=== PATIENT | male | born 1960 | race Caucasian/White ===

== ENCOUNTER 2019-12-04 15:32 | Inpatient (IN) ==
[2019-12-04] MEDS ORDERED: CARDIZEM IV ONE (15:58)
--- NOTE | 2019-12-04 15:58 | EKG Report ---
Test Performed on : 12/04/2019 3:45:11 PM Test Reason : sob Blood Pressure : / mmHG Vent. Rate : 149 BPM Atrial Rate : 298 BPM P-R Int : 000 ms QRS Dur : 088 ms QT Int : 302 ms P-R-T Axes : 260 032 -19 degrees QTc Int : 475 ms Atrial flutter. with 2:[address]. [address] and T wave abnormality Abnormal ECG When compared with ECG of 18-JUL-2015 19:26, Atrial flutter. has replaced Sinus rhythm. Vent. rate has increased BY [address] now depressed in Inferior leads ST now depressed in Lateral leads Nonspecific T wave abnormality, worse in Inferior leads Nonspecific T wave abnormality now evident in Lateral leads Unconfirmed Result
[2019-12-04 16:11] LABS: BASO# 0.02 X1000 (0.0-0.2); BASO% 0.2 % (0.0-0.8); EOS# 0.05 X1000 (0.0-0.7); EOS% 0.6 % (0.0-10.0); HEMATOCRIT 38.2 % (42.0-52.0); HEMOGLOBIN 12.4 g/dL (14.0-18.0); IMM GRAN# 0.02 X1000 (0.0-0.04); IMM GRAN% 0.2 % (0.0-0.5); LYMPH# 2.21 X1000 (1.2-3.4); LYMPH% 26.3 % (20.5-51.1); MCH 31.5 PG (27-31); MCHC 32.5 g/dL (33-37); MONO# 0.75 X1000 (0.11-0.59); MONO% 8.9 % (1.7-9.3); MPV 10.5 FL (7.4-10.4); NEUT# 5.34 X1000 (1.4-6.5); NEUT% 63.8 % (42.2-75.2); PLT 194 X1000 (130-400); RBC 3.94 XMIL (4.7-6.1); RDW 13.9 % (11.5-14.5); WBC 8.39 X1000 (4.8-10.8)
[2019-12-04] MEDS: CARDIZEM 100 MG/NS 100 MG/100 ML IVPB IV SCH ×2 (16:16→22:52)
--- NOTE | 2019-12-04 16:17 | Diag Imaging Result Doc PS360 ---
CHEST-1 VIEW - 12/04/2019 INDICATION: sob COMPARISON: None FINDINGS: There is mild cardiomegaly. Pulmonary vascularity is top normal. No infiltrates or edema. No substantial pleural effusion. IMPRESSION: Mild cardiomegaly. Electronically signed by Mickey Mclaughlin 12/04/2019 4:15 PM
[2019-12-04 16:54] LABS: AGAP 13; ALB/GLOB RATIO 1.1; ALBUMIN 4.1 g/dL (3.5-5.0); ALKALINE PHOSPHATASE 65 U/L (32-122); BUN 9 mg/dL (8-22); CHLORIDE 102 mmol/L (98-107); COSMO 283; ESTIMATED GFR > 60; GLUCOSE 183 mg/dL (70-104); GOT 25 U/L (10-34); GPT 9 U/L (10-44); POTASSIUM 4.3 mmol/L (3.5-5.1); SODIUM 140 mmol/L (136-145); TCO2 25 mmol/L (25-35); TOTAL BILIRUBIN 0.62 mg/dL (0.20-1.00); TOTAL PROTEIN 7.7 g/dL (6.3-8.3)
[2019-12-04 17:03] LABS: FREE T4 1.1 ng/dL (0.93-1.70)
[2019-12-04 17:11] LABS: TSH 5.2 uIUmL (0.27-4.20)
--- NOTE | 2019-12-04 17:17 | PROVIDER DOCUMENTATION ---
This chart was entered by Graciela Childers Scribe, acting as scribe for Sung Dumas MD. HPI-Cardiac General - General Chief Complaint: Palpitations Stated Complaint: AFIB Time Seen by Provider: 12/04/19 15:45 Source: patient Allergies/Adverse Reactions: Patient Allergies Allergy/AdvReac Type Severity Reaction Status Date / Time No Known Allergies Allergy Verified 12/04/19 15:55 Home Medications: Home Medication List Medication Instructions Recorded Confirmed Last Taken Type Amlodipine [Norvasc] 5 mg PO DAILY 11/08/12 12/04/19 07/18/15 History Lansoprazole [Prevacid] 30 mg PO DAILY 11/08/12 07/18/15 07/18/15 07:00 History Losartan [Cozaar] 100 mg PO DAILY #90 tablet 11/08/12 12/04/19 07/18/15 07:00 Rx Metoprolol [Lopressor] 100 mg PO DAILY #90 tablet 11/08/12 12/04/19 07/18/15 07:00 Rx Potassium Chloride 20 meq PO DIRECTED #12 11/08/12 07/18/15 07/18/15 07:00 Rx tab.er.prt Spironolactone [Aldactone] 25 mg PO DAILY #90 tablet 11/08/12 12/04/19 07/18/15 07:00 Rx Magnesium Oxide 400 mg PO BID #60 tablet 07/18/15 12/04/19 Unknown Rx - History of Present Illness-Cardiac Nature of Presenting Problem: 59yom presents to ED cc AFIB with SOB. Pt reports he woke up with chest cold symptoms, called Dr. Pitts, scheduled an appt for this afternoon and when he went in he was in AFIB. Pt reports he had EKG 1.5 months ago that was normal. Pt denies CP or palpitations. B/p is 178/140 upon exam. Pt has hx of HTN and DM. Quality of Pain: reports: none Severity in ED: moderate, severe Onset/Duration: unsure Timing: still present Context/Activities at Onset: reports: moderate activity Modifying Factors: improves with: nothing History of arrythmia: reports: none Nitro Today/Relief: reports: no nitro taken today Aspirin Treatment Today: reports: no aspirin today Associated Symptoms: reports: shortness of breath Similar Symptoms Previously?: No Recently Seen Here or By Another Healthcare Provider: Yes (seen by Dr. Gisselle leone) Review of Systems - Adult - REVIEW OF SYSTEMS - ADULT Constitutional: reports: see HPI. denies: chills, fever, fatique Eyes: reports: no symptoms reported Ears, Nose, Mouth & Throat: reports: no symptoms reported Cardiovascular: reports: see HPI, irregular heart rate. denies: chest pain Respiratory: reports: see HPI, shortness of breath. denies: cough Gastrointestinal: reports: no symptoms reported Genitourinary: reports: no symptoms reported Musculoskeletal: reports: no symptoms reported Integumentary: reports: no symptoms reported Neurological: reports: no symptoms reported Psychiatric: reports: no symptoms reported Endocrine: reports: no symptoms reported Hematologic/Lymphatic: reports: no symptoms reported Allergic/Immunologic: reports: no symptoms reported All Other Systems: Reviewed and Negative Past History - Adult - PAST MEDICAL HISTORY-ADULT Review of Records: reports: Nursing Assessment Review, Medications Reviewed, Social history reviewed & non-contributory. Major Childhood Illnesses: reports: denies history Cardiovascular: reports: HTN, hyperlipidemia Respiratory: reports: asthma Gastrointestinal: reports: GERD Obstetrical/Gynecological: reports: denies history Genitourinary: reports: denies history Musculoskeletal: reports: denies history Neurological: reports: denies history Endocrine/Immune: reports: Diabetes Other Conditions: reports: denies history - PRIOR SURGERIES/PROCEDURES Surgical/Procedure History: reports: cholecystectomy - IMMUNIZATION STATUS Childhood Immunizations: See Nurse Assessment Flu Vaccine: See Nurse Assessment - FAMILY HISTORY Family History: reviewed, not pertinent - SOCIAL HISTORY Smoking: denies Physical Exam-General - PHYSICAL EXAM-ADULT Initial Vital Signs Reviewed: Yes - CONSTITUTIONAL General Appearance: appears well, alert, no apparent distress. negative: anxious, combative - EYES Eyes: PERRL/EOMI, pink conjunctivae. negative: photophobia - HEAD, EARS, NOSE, MOUTH & THROAT HENMT: normocephalic/atraumatic, moist mucous membranes. negative: angioedema - NECK Neck: non-tender, full range of motion, supple, normal inspection. negative: C- spine tenderness - RESPIRATORY Respiratory: chest non-tender, lungs clear, normal breath sounds. negative: crackles, rales, rhonchi - CARDIOVASCULAR Cardiovascular: normal peripheral pulses, no edema, no gallop, no JVD, no murmur , tachycardia. negative: regular rate, rhythm, bradycardia - GASTROINTESTINAL (ABDOMEN) Abdominal Exam: normal bowel sounds, non tender, soft. negative: rigid, rebound - LYMPHATIC Lymphatic: no adenopathy. negative: enlargement - MUSCULOSKELETAL Back Exam: normal inspection, no CVA tenderness, no vertebral tenderness. negative: kyphosis Extremity: no calf tenderness. negative: deformity - SKIN Integumentary: normal color, normal turgor, warm/dry, swelling (2+ to both lower legs). 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 negative: facial droop - PSYCHIATRIC Psych/Mental Status: normal mood/affect, oriented x 3. negative: anxious, disheveled - HEART Score HEART Score: History: Moderately Suspicious HEART Score: ECG: Significant ST-Deviation HEART Score: Age: 45-65 Years HEART Score: Risk Factors for Atherosclerotic Disease: 1 or 2 Risk Factors HEART Score: Troponin: > or = 3x Normal Limit Total HEART Score:: 7 Progress - PLAN OF CARE/RESULTS Progress/Plan/Lab Results: Vital Signs - 8 hr 12/04/19 15:38 12/04/19 15:41 12/04/19 15:53 Temperature 98.9 F Pulse Rate 144 H 149 H 149 H Respiratory Rate 18 22 24 Blood Pressure 178/140 178/140 169/126 O2 Sat by Pulse Oximetry 98 98 97 12/04/19 16:00 12/04/19 16:25 12/04/19 16:29 Temperature Pulse Rate 149 H 101 H 101 H Respiratory Rate 20 22 23 Blood Pressure 182/112 157/96 145/102 O2 Sat by Pulse Oximetry 98 96 96 12/04/19 16:59 Temperature Pulse Rate 105 H Respiratory Rate 22 Blood Pressure 152/111 O2 Sat by Pulse Oximetry 95 Laboratory Results - last 24 hr 12/04/19 12/04/19 12/04/19 15:54 15:54 15:54 WBC 8.39 RBC 3.94 L Hgb 12.4 L Hct 38.2 L MCV 97.0 MCH 31.5 H MCHC 32.5 L RDW Std Deviation 13.9 Plt Count 194 MPV 10.5 H Immature Gran % (Auto) 0.2 Neut % (Auto) 63.8 Lymph % (Auto) 26.3 [place] % (Auto) 8.9 Eos % (Auto) 0.6 Baso % (Auto) 0.2 Immature Gran # (Auto) 0.02 Neut # (Auto) 5.34 Lymph # (Auto) 2.21 [place] # (Auto) 0.75 H Eos # (Auto) 0.05 Baso # (Auto) 0.02 Sodium 140 Potassium 4.3 Chloride 102 Carbon Dioxide 25 Anion Gap 13 BUN 9 Creatinine 1.0 Estimated GFR/1.73 m2 > 60 BUN/Creatinine Ratio 9 Glucose 183 H Calculated Osmolality 283 Calcium 8.0 L Total Bilirubin 0.62 AST 25 ALT 9 L Alkaline Phosphatase 65 Troponin T High Sens Jyu-E-Gxjnnphkshe Pept Total Protein 7.7 Albumin 4.1 Globulin 3.6 Albumin/Globulin Ratio 1.1 TSH 5.20 H Free T4 1.10 12/04/19 12/04/19 15:54 15:54 WBC RBC Hgb Hct MCV MCH MCHC RDW Std Deviation Plt Count MPV Immature Gran % (Auto) Neut % (Auto) Lymph % (Auto) [place] % (Auto) Eos % (Auto) Baso % (Auto) Immature Gran # (Auto) Neut # (Auto) Lymph # (Auto) [place] # (Auto) Eos # (Auto) Baso # (Auto) Sodium Potassium Chloride Carbon Dioxide Anion Gap BUN Creatinine Estimated GFR/1.73 m2 BUN/Creatinine Ratio Glucose Calculated Osmolality Calcium Total Bilirubin AST ALT Alkaline Phosphatase Troponin T High Sens 79 H Fan-V-Ovuaduyxjlt Pept 1811 H Total Protein Albumin Globulin Albumin/Globulin Ratio TSH Free T4 Orders Category Date Time Status CHEST-1 VIEW [RAD] Stat Exams 12/04/19 15:52 Completed CBC WITH ELECTRONIC DIFF [HEME] Stat Lab 12/04/19 15:54 Completed COMPREHENSIVE METABOLIC PANEL [CHEM] Stat Lab 12/04/19 15:54 Completed FREE T4 Stat Lab 12/04/19 15:54 Completed PRO B-NATRIURETIC PEPTIDE Stat Lab 12/04/19 15:54 Completed PROTIME WITH INR [COAG] Stat Lab 12/04/19 15:54 Received PTT [COAG] Stat Lab 12/04/19 15:54 Received TROPONIN T HIGH SENSITIVITY Stat Lab 12/04/19 15:54 Completed TSH Stat Lab 12/04/19 15:54 Completed Diltiazem 100 mg/Ns [Cardizem 100 mg/Ns] Med 12/04/19 16:00 Active 100 mg in 100 ml IV As Directed mls/hr Diltiazem [Cardizem] Med 12/04/19 15:58 Discontinued 20 mg IV NOW ONE EKG [EKG] Stat Ther 12/04/19 15:53 Draft Result Diagrams: 12/04/19 15:54 12/04/19 15:54 - EKG 2 Time of EKG reading by physician:: 15:45 EKG Read and Signed by:: Sung Dumas EKG Interpretation (*Must complete 3 of following elements*): Abnormal Rate: 149 Rhythm: AFIB w/2:1 AV conduction [place]: normal ST Wave: non-specific ST changes - XRAY 1 XRAY: Bilateral XRAY Study: Chest Impression: See EMR Report (IMPRESSION: Mild cardiomegaly. Electronically signed by Mickey Mclaughlin 12/04/2019 4:15 PM 12/04/19 [id number]) - CONSULTS/PCP/HOSPITALIST Notification #1 *Consult/PCP/Hospitalist*: Elizabeth/PUMP INSTALLER Time Discussed: 17:08 Consult Disposition: Will see in ED, Admit (accepted to [facility]) Departure - Departure Date of Disposition Decision: 12/04/19 Time of Disposition Decision: 17:09 DIAGNOSIS: Shortness of breath, CHF (congestive heart failure) Afib Qualifiers: Atrial fibrillation type: unspecified Qualified Code(s): I48.91 - Unspecified atrial fibrillation Disposition: ADMITTED INPATIENT 09 Certified Medical Emergency: Emergent Condition: Stable Referrals and Follow-Ups: Fior Pitts MD [Primary Care Provider] - - Critical Care Note This patient required my direct & personal management of CC.: Yes Attestation - Physician/ ALBERTO Attestation Patient care was provided by Advanced Practice Provider:: No The physician spent face to face time with patient:: Yes Advanced Practice Provider documentation review:: Supervising physician onsite and consulted in the evaluation and care of this patient. The physician did have a face to face encounter with the patient. This chart was documented by the indicated scribe, (Graciela Childers Scribe) and accurately reflects the services I performed and decisions made by me, Sung Dumas MD, as attested by the provider's signature.
[2019-12-04] MEDS ORDERED: TYLENOL PO PRN (17:24)
[2019-12-04] MEDS ORDERED: ZOFRAN IV PRN (17:24)
[2019-12-04 17:30] LABS: INR 1.15; PROTIME 14.8 Seconds (11.0-16.0)
[2019-12-04 17:31] LABS: PTT 31.6 Seconds (22.3-41.8)
[2019-12-04 17:57] LABS: FREE T4 1.12 ng/dL (0.93-1.70)
[2019-12-04 17:58] LABS: HEMOGLOBIN A1C 6.2 % (4.8-6.0)
[2019-12-04 18:00] LABS: TSH 5.34 uIUmL (0.27-4.20)
--- NOTE | 2019-12-04 18:40 | HISTORY AND PHYSICAL ---
PRIMARY CARE PHYSICIAN: Dr. Pitts. CHIEF COMPLAINT: I was sent from my primary care physician's office because I have an irregular heart rhythm. HISTORY OF PRESENT ILLNESS: Mr. Ceballos is a 59-year-old male with a history of hypertension, morbid obesity, hyperlipidemia, and diabetes mellitus type 2, who initially presented to Dr. Pitts's office with a chief complaint of cold symptoms that have been going on since this past weekend. The patient reports that on Wednesday he woke up with a runny nose and a cough and went to the pharmacy and picked up some Karol[place] and Primatene Mist. The patient states that he has been taking [place] every 4 hours since Wednesday and he took Primatene Mist yesterday afternoon. The patient noticed that at work he started to feel more short of breath with minimal exertion and noticed that he was having palpitations. The patient was seen by his primary care physician today and was noted to be in atrial fibrillation with RVR. He was then sent to the ER for further treatment and evaluation. In the ER, the patient was noted to be in atrial fibrillation with a heart rate of 144 to about 150. The patient received a Cardizem bolus and was started on a Cardizem drip. At this time the patient denies having any chest pain, headache, dizziness, or shortness of breath. He states that he feels much better now that his heart rate has slowed down. PAST MEDICAL HISTORY: 1. Hypertension. 2. Hyperlipidemia. 3. Diabetes mellitus type 2. 4. Asthma. 5. Morbid obesity. PAST SURGICAL HISTORY: Cholecystectomy. FAMILY HISTORY: The patient's mother had hypertension and diabetes. The patient's father had diabetes. 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 He denies any tobacco use. He states that he drinks 1 shot every other day. He denies any illicit drug use. ALLERGIES: No known drug allergies. HOME MEDICATIONS: 1. Norvasc 5 mg oral daily. 2. Cozaar 100 mg oral daily. 3. Lopressor 100 mg p.o. daily. 4. Aldactone 25 mg oral daily. 5. Magnesium oxide 400 mg oral twice a day. REVIEW OF SYSTEMS: A 12-point review of systems has been performed. Please refer to the history of present illness for pertinent positives and negatives. PHYSICAL EXAMINATION: VITAL SIGNS: Temperature 98.9 degrees, blood pressure 178/140, heart rate 149, respirations 22, O2 saturation is 98% on room air. GENERAL: This is a morbidly obese male lying on the stretcher, in no acute distress. SKIN: No rashes. No lesions. Normal capillary refill. HEENT: Normocephalic, atraumatic. PERRLA, EOMI. Trachea is midline. NECK: Supple. No JVD. No lymphadenopathy. HEART: S1, S2 normal. Irregularly irregular rhythm. LUNGS: Clear to auscultation bilaterally. No wheezing. No rales. No rhonchi. ABDOMEN: Positive bowel sounds. Soft, nontender, nondistended. EXTREMITIES: No edema. No cyanosis. No calf tenderness. NEUROLOGIC: The patient is alert and oriented x4. No focal neurologic deficits noted. Cranial nerves 2-12 intact. LABS: White blood cell count 8.3, hemoglobin 12, hematocrit 38, platelets 194,000. INR 1.15. Sodium 140, potassium 4.3, chloride 102, CO2 25, BUN 9, creatinine 1, glucose 183, calcium 8. Troponin T 79. ProBNP 1,811. TSH 5.2, free T4 1.1, albumin 4.1. Chest x-ray shows mild cardiomegaly. EKG shows atrial flutter at a rate of 149. ASSESSMENT AND PLAN: 1. Atrial flutter. The patient is currently on a Cardizem drip. We will continue on this regimen. We will likely transition the patient to oral rate control medication. We will also order an echocardiogram and consult with the cosmetic sales consultant. In the meantime, we will start the patient on full dose Lovenox. 2. Uncontrolled hypertension. We will restart the patient's home antihypertensive regimen and adjust accordingly. 3. Diabetes mellitus type 2. We will cover the patient with sliding scale insulin. The patient will be started on a diabetic diet. 4. Anemia. Will check iron studies and monitor the hemoglobin and hematocrit closely. 5. Deep vein thrombosis prophylaxis. The patient is on full-dose Lovenox. 6. The plan of care was discussed with the patient and he is in agreement with the treatment plan. cc: MD ANTONIETTA Romeo
[2019-12-04] MEDS ORDERED: COREG PO SCH (21:00)
[2019-12-04] MEDS: CARDIZEM PO SCH (21:33)
[2019-12-04] MEDS: LOVENOX SUBQ SCH (21:33)
[2019-12-04] MEDS: HUMULIN R SUBQ SCH (21:33)
[2019-12-05 02:16] LABS: CK INDEX 1.1 (0.0-2.5); CK-MB 3.35 ng/mL (0.0-5.0)
[2019-12-05] MEDS: CARDIZEM PO SCH ×2 (03:36→09:46)
[2019-12-05] MEDS: CARDIZEM 100 MG/NS 100 MG/100 ML IVPB IV SCH (04:28)
[2019-12-05 06:00] LABS: HEMATOCRIT 33.9 % (42.0-52.0); HEMOGLOBIN 10.9 g/dL (14.0-18.0); MCH 32.1 PG (27-31); MCHC 32.2 g/dL (33-37); MCV 99.7 FL (81-99); MPV 10.4 FL (7.4-10.4); RBC 3.4 XMIL (4.7-6.1); RDW 14.1 % (11.5-14.5); WBC 7.12 X1000 (4.8-10.8)
[2019-12-05 06:27] LABS: AGAP 12; BUN 8 mg/dL (8-22); CALCIUM 7.5 mg/dL (8.8-10.2); CHLORIDE 102 mmol/L (98-107); COSMO 282; CREATININE 0.8 mg/dL (0.7-1.2); ESTIMATED GFR > 60; GLUCOSE 141 mg/dL (70-104); MAGNESIUM 1.3 mg/dL (1.5-2.7); POTASSIUM 3.4 mmol/L (3.5-5.1); SODIUM 141 mmol/L (136-145); TCO2 27 mmol/L (25-35)
[2019-12-05] MEDS: HUMULIN R SUBQ SCH ×2 (06:38→11:19)
[2019-12-05] MEDS ORDERED: PRILOSEC PO SCH (07:00)
[2019-12-05 07:09] LABS: CK INDEX 1.1 (0.0-2.5); CK-MB 2.85 ng/mL (0.0-5.0)
--- NOTE | 2019-12-05 07:19 | EKG Report ---
Test Performed on : 12/05/2019 07:03:00 AM Test Reason : atrial flutter Blood Pressure : / mmHG Vent. Rate : 087 BPM Atrial Rate : 087 BPM P-R Int : 162 ms QRS Dur : 090 ms QT Int : 412 ms P-R-T Axes : 060 044 079 degrees QTc Int : 495 ms Sinus rhythm. with premature atrial complexes. Nonspecific T wave abnormality Abnormal ECG When compared with ECG of 04-DEC-2019 15:45, (Unconfirmed) Sinus rhythm. has replaced Atrial flutter. Vent. rate has decreased BY [address] no longer depressed in Inferior leads ST no longer depressed in Lateral leads Nonspecific T wave abnormality no longer evident in Inferior leads Confirmed by Rodrigo FITZPATRICK, Simeon Avendano ([id number]) on 12/05/2019 6:15:28 PM
[2019-12-05] MEDS ORDERED: POTASSIUM CHLORIDE 20 MEQ/SWI 20 MEQ/100 ML IVPB IV SCH (09:00)
[2019-12-05] MEDS ORDERED: TOPROL XL PO SCH (09:00)
[2019-12-05] MEDS ORDERED: MAGNESIUM SULFATE 2 GM/S.W.I. 2 GM/50 ML IVPB IV ONE (09:00)
[2019-12-05] MEDS ORDERED: COZAAR PO SCH (09:00)
[2019-12-05] MEDS: LOVENOX SUBQ SCH (09:46)
[2019-12-05] MEDS ORDERED: POTASSIUM CHLORIDE 20% LIQUID PO ONE (10:21)
[2019-12-05] MEDS ORDERED: LASIX IV ONE (10:22)
[2019-12-05] MEDS ORDERED: APRESOLINE IV PRN (12:35)
[2019-12-05] MEDS ORDERED: TOPROL XL PO ONE (12:36)
[2019-12-05] MEDS ORDERED: CARDIZEM PO SCH (14:00)
[2019-12-05 14:04] LABS: HEMOGLOBIN 11.2 g/dL (14.0-18.0)
--- NOTE | 2019-12-05 14:56 | CARDIOLOGY CONSULTATION ---
DATE: 12/05/2019 CHIEF COMPLAINT: Patient sent from primary care physician's office due to irregular heart rhythm. HISTORY OF PRESENT ILLNESS: Mr. Ceballos is a 59-year-old, black male with a history of diabetes and hypertension who, for the last 5 to 6 days or so, has had some issues with increased fatigue as well as cough. He originally thought that this might have been a little bit of an upper respiratory infection and had been treating it at home with some [id number]-[id number] medications. He denies any clear heart racing or fluttering in his chest but has noticed that, at work, when he bonner a long distance and has to walk in, that he has been more fatigued. At times, he has had some orthopnea. He denies any overt chest pain. He denies any bleeding issues or dark stools. He reports compliance with medications at home. He is not aware of any thyroid disorders. PAST MEDICAL HISTORY: Significant for: 1. Hypertension. 2. Hyperlipidemia. 3. Type 2 diabetes. 4. Asthma. SOCIAL HISTORY: He works at [employer]. Denies any tobacco use. He drinks a shot of liquor a few times a week. REVIEW OF SYSTEMS: A 10 system review of systems is negative except for those things mentioned in the HPI. PHYSICAL EXAMINATION: He is afebrile. His presenting heart rates were in the 150 range. More recently, he is in sinus rhythm at 80 beats per minute per telemetry. His blood pressure was 154/100. General: He is in no acute distress. HEENT: Oropharynx is moist. Normal dentition. His eye examination shows pink conjunctivae and white sclerae. Neck: Examination shows no obvious thyromegaly or thyroid tenderness. Cardiovascular: He sounds to be in a regular rate and rhythm. I do not hear any obvious murmurs. He has no S3. He has mild bilateral lower extremity edema, and warm and well-perfused extremities. JVP is less than 8 cm. He has no carotid bruits. Chest Examination: Has no audible wheezes. He has no increased work of breathing. Abdomen: Soft, nontender. He has some multiple areas of ecchymoses, consistent with the Lovenox shots he has been receiving. Skin Examination: Warm and dry throughout. No obvious rashes. Neurological: He is moving all extremities well with no lateralizing deficits. PERTINENT DATA: His original EKG on the at 15:45 shows what appears to be atrial flutter with 2:1 conduction at a rate of 149 beats per minute. He had some nonspecific diffuse ST-T changes. Subsequent EKG on the at 7:03 shows sinus rhythm, just mild nonspecific T-wave flattening in the lateral chest leads. His chest x-ray demonstrates mild cardiomegaly, some suggestion of pulmonary vascular distention. White count 7.1. His original was 38.2. It has dropped to 33.9. Platelet count is 170,000. His sodium is 141, potassium is 3.4, his BUN is 8, creatinine 0.8. His magnesium level is 1.3. His TSH was 5.34 with a free T4 of 1.12. His troponin was ranging between 69 and 79. His proBNP is 1811. ASSESSMENT: Mr. Ceballos is a 59-year-old male with a new onset atrial flutter. PLAN: He has converted to sinus rhythm spontaneously. He is on metoprolol at a dose of 200 a day which would be reasonable. I will add in some Multaq at 400 b.i.d. We are rechecking his hematocrit. If this is improved, then he could likely be discharged home on Eliquis 5 b.i.d. I will make a referral over to the [facility] EP Service for consideration for an atrial flutter ablation. This can be done as an outpatient. We will follow up on the echocardiogram results. I will give him a small dose of furosemide at 20 mg, considering his edema. Place him on some hydrochlorothiazide as an outpatient. We will follow up on the results of the echocardiogram. cc: MD Savannah Thomas MD
[2019-12-05 15:24] VITALS: BP 143/94
--- NOTE | 2019-12-05 17:39 | ECHO REPORT ---
ORDER DATE: 12/05/2019 INDICATION: Atrial fibrillation. M-MODE MEASUREMENTS: Left ventricle end diastole: 5.3. Left ventricle end systole: 4.0. Posterior wall: 1.4. Interventricular septum: 1.4. Left atrium: 5.0. Aortic diameter: 4.0. SUMMARY OF 2-DIMENSIONAL IMAGIN. The study is really difficult. Optison was added. 2. Global left ventricular systolic function appears to be on the order of 40% to 45%. No definite wall motion abnormality is noted. The impairment appears to be global. 3. The aortic valve has 3 cusps. Color flow mapping unremarkable. 4. The mitral valve shows a moderately severe degree of regurgitation. 5. Pulse wave Doppler of mitral inflow shows a fusion of the E and A waves. 6. Tissue Doppler of septal and lateral mitral annulus averages 9 cm. 7. The deceleration time of the E-wave is very short but is fused to the A wave, so it is difficult to sort it out. 8. Diastolic dysfunction is likely to be present. There is a moderately enlarged left atrium. 9. The tricuspid valve shows a moderate degree of respiratory rate with pulmonary pressure estimated at 66 mmHg. The inferior vena cava is significantly dilated. 10.The pulmonic valve is unremarkable. SUMMARY: 1. This study is abnormal. It is difficult. The patient is really quite obese. Optison was added. 2. The left ventricle is dilated with globally impaired systolic function, ejection fraction estimated at 40% to 45%. 3. Moderately severe mitral regurgitation. 4. Moderate degree of tricuspid valve. Pulmonary pressure of 66 mmHg. 5. Suspected diastolic dysfunction. 6. Unremarkable aortic valve. Clinical correlation recommended. cc: MD Savannah Petty MD
[2019-12-05] MEDS ORDERED: MULTAQ PO SCH (21:00)
[2019-12-05] MEDS ORDERED: ELIQUIS PO SCH (21:00)
[2019-12-05] MEDS ORDERED: LOVENOX SUBQ SCH (22:00)
[2019-12-06] MEDS ORDERED: TOPROL XL PO SCH (09:00)
[2019-12-06] MEDS ORDERED: HYDROCHLOROTHIAZIDE PO SCH (09:00)
--- NOTE | 2019-12-07 14:20 | DISCHARGE SUMMARY ---
ADMISSION DATE: 12/04/2019 DISCHARGE DATE: 12/05/2019 CONSULTS: Cardiology, Dr. Cobb. PERTINENT STUDIES: Chest x-ray, mild cardiomegaly but no acute process. Echocardiogram, EF mildly decreased at 40% to 45%, moderate to severe pulmonary hypertension with pressure of 66, also some diastolic dysfunction noted. Moderate to severe mitral regurgitation. DISCHARGE DIAGNOSES: 1. Atrial fibrillation/atrial flutter. 2. Hypertension. 3. Diabetes. 4. Anemia. 5. Obesity. 6. Hypokalemia. 7. Hypomagnesemia. HOSPITAL COURSE: The patient presented from his primary care physician's office because of an irregular heartbeat. He was found to be in atrial fibrillation with rapid ventricular response. There was some question of atrial flutter as well, but it appeared to be mostly atrial fibrillation. Received Cardizem bolus and was then started on a drip with control of his heart rate. High sensitivity troponin was obtained and was mildly positive, but flat, slightly downtrending on recheck. Initial 79, down to 69 the third. BNP was also moderately elevated at 1800. No previous BNP was available for comparison, so echocardiogram was obtained. Echocardiogram did show combined systolic and diastolic heart failure with EF of 40%, as well as moderate to severe mitral regurgitation and pulmonary hypertension. He had minor electrolyte abnormalities, which were corrected. The patient was on diltiazem drip overnight, and he converted back in sinus rhythm on that. He was evaluated by Cardiology who placed him on Multaq, in addition to his home metoprolol, as well as Eliquis b.i.d. and a small dose of hydrochlorothiazide. He did receive a single dose of Lasix while here, but did not appear to be significantly volume overloaded. He did have some minor lower extremity edema. He was noted to be mildly anemic with initial hemoglobin of 12.4 on this hospitalization. It did drop slightly but then came back up, the lowest 10.9 and came back up to 11.2. The patient did not have any clear signs or symptoms of bleeding. He did not have any hematochezia, melena, etc. I did advise patient that he likely needs a colonoscopy in the near future. He has never had one before and is overdue for screening colonoscopy anyway. Patient instructed to return to care if he developed any signs of bleeding. DISCHARGE VITAL SIGNS: Temperature 98.2 degrees, pulse 96, respirations 15, blood pressure 143/94, and O2 saturation 99% on room air. DISCHARGE DIET: Cardiac. DISCHARGE MEDICATIONS: Atorvastatin 10 mg p.o. daily, clonidine 0.1 mg p.o. t.i.d., fenofibrate 134 mg p.o. daily, metformin 500 mg p.o. b.i.d., losartan 100 mg p.o. daily, Toprol-XL 200 mg p.o. daily, Eliquis 5 mg p.o. b.i.d., hydrochlorothiazide 25 mg p.o. daily, Multaq 400 mg p.o. b.i.d., magnesium oxide 400 mg p.o. b.i.d. FOLLOWUP AND PLAN: The patient discharging home to follow up with PCP and Cardiology. The patient instructed to check weight daily in light of heart failure. The patient instructed to return to care if he has palpitations, dizziness, or any signs or symptoms of bleeding. Discussed with patient that he needs to obtain colonoscopy in the near future. TIME SPENT: Greater than 30 minutes spent arranging discharge and counseling the patient. cc: Savannah Ocasio MD
== END 2019-12-05 16:26 | disposition home or self-care (01) | DRG 310 ==
LOC: ED 15:32 → 2N 20:58 → SUATTDRO 20:58
PROVIDERS: ADMIT Internal Medicine; ATTEND Internal Medicine